=== PATIENT | male | born 1990 | race Caucasian/White ===

== ENCOUNTER 2020-10-29 17:58 | Emergency (ER) | payer BC, OTHER ==
[~2020-10-29] VITALS: Ht 172.7 cm; Wt 89.9 kg
--- NOTE | 2020-10-29 19:42 | NUR ---
PT RESTING ON [facility] CONNECTED TO MONITORING VSS, PAULINE
[2020-10-29] MEDS ORDERED: KETOROLAC 30 MG/1 ML ONE (20:12)
--- NOTE | 2020-10-29 20:15 | NUR ---
PT REFUSED TORADOL AT THIS TIME STS DOES NOT WANT IT
--- NOTE | 2020-10-29 20:16 | NUR ---
PT TO XRAY, AMBULATORY
[2020-10-29] MEDS ORDERED: KETOROLAC 30 MG/1 ML IM ONE (20:30)
[2020-10-29 21:20] VITALS: BP 124/74
--- NOTE | 2020-10-29 21:21 | NUR ---
Patient/Caregiver given discharge instructions and they have confirmed that they understand the instructions. Patient ambulatory with steady gait.
== END 2020-10-29 21:36 | disposition home or self-care (01) ==
LOC: ED 18:28
DX: S29.012A Strain of muscle and tendon of back wall of thorax, initial encounter (principal); S40.012A Contusion of left shoulder, initial encounter; X58.XXXA Exposure to other specified factors, initial encounter; Y93.89 Activity, other specified; Y92.89 Other specified places as the place of occurrence of the external cause; Y99.8 Other external cause status
CPT/HCPCS: 72072; 99284